=== PATIENT | female | born 1995 | race Two or more races ===

== ENCOUNTER 2020-05-06 00:59 | Emergency (ER) | payer MEDICAID ==
[~2020-05-06] VITALS: Ht 152.4 cm; Wt 87.1 kg
--- NOTE | 2020-05-06 01:16 | NUR ---
ED Nurse Note: Patient walked into the ED with c/o dizziness. Pt was experiencing dizziness a couple of months ago but got worse recently, accompanied by orthostatic hyptonsion this AM at work. Patient denies LOC, trauma and n/v. Patient is AAOX4 and ambulatory. Placed on monitor bed.
[2020-05-06 01:30] VITALS: BP 122/82
--- NOTE | 2020-05-06 01:49 | NUR ---
ED Nurse Note: ERMD at bedside
--- NOTE | 2020-05-06 02:00 | Emergency Room Report ---
History of Present Illness General Chief Complaint: Dizziness Source: Patient Present Illness [facility] This is a 24-year-old female with no past medical history. She presents with chief complaint of dizziness. This been an intermittent problem for the last 2 months or so. Occasionally she gets very dizzy felt as she cannot pass out. Usually with sitting to a standing position. But it happened when she is laying down also. No nausea no vomiting. No diaphoresis. No palpitation. Never had work-up for this. Denies any other complaint. Allergies: Coded Allergies: No Known Allergies (Unverified , 05/06/20) COVID-19 Screening Contact w/high risk pt: No Experienced COVID-19 symptoms?: No COVID-19 Testing performed DRUPAL ARCHITECT: No Patient History Past Medical History: see triage record, old chart reviewed Past Surgical History: none Pertinent Family History: none Social History: Denies: smoking Last Menstrual Period: t Now: No : 0 Para: 0 Immunizations: other Reviewed Nursing Documentation: PMH: Agreed; PSxH: Agreed Nursing Documentation-PMH Past Medical History: No Stated History Review of Systems Eye: Denies: eye pain, blurred vision ENT: Denies: ear pain, nose congestion, throat swelling Respiratory: Denies: cough, shortness of breath Cardiovascular: Denies: chest pain, palpitations Gastrointestinal: Denies: abdominal pain, diarrhea, nausea, vomiting Musculoskeletal: Denies: back pain, joint pain Skin: Denies: rash Neurological: Reports: dizziness; Denies: headache, numbness Endocrine: Denies: increased thirst, increased urine Hematologic/Lymphatic: Denies: easy bruising All Other Systems: negative except mentioned in HPI Physical Exam Vital Signs Date Time Temp Pulse Resp B/P (MAP) Pulse Ox O2 Delivery O2 Flow Rate FiO2 05/06/20 01:10 98.4 57 20 122/82 (95) 99 Room Air Vitals unremarkable Sp02 EP Interpretation: reviewed, normal General Appearance: well appearing, no apparent distress, alert Head: normocephalic, atraumatic Eyes: bilateral eye PERRL, bilateral eye EOMI ENT: hearing grossly normal, normal pharynx Neck: full range of motion, supple, no meningismus Respiratory: chest non-tender, lungs clear, normal breath sounds Cardiovascular #1: regular rate, rhythm, no murmur, bradycardia Gastrointestinal: normal bowel sounds, non tender, no mass, no organomegaly, no bruit, non-distended Musculoskeletal: back normal, normal range of motion, gait/station normal Psychiatric: mood/affect normal Medical Decision Making Diagnostic Impression: Primary Impression: Dizziness ER Course Patient presents with dizziness. Unknown etiology. This could be secondary to arrhythmia or PVCs orthostatic hypotension. Her heart rate been in the 50s here. Blood pressures been normal. Patient said that her heart rate always runs in the mid 50s. Labs unremarkable with no electrolyte abnormality. She is not . Not anemic. Will discharge home with recommendation for Holter monitor. EKG Diagnostic Results Rate: normal, bradycardiac Rhythm: NSR ST Segments: no acute changes Rhythm Strip Diag. Results EP Interpretation: yes Rate: 51 Rhythm: NSR, no PVC's, no ectopy Last Vital Signs Date Time Temp Pulse Resp B/P (MAP) Pulse Ox O2 Delivery O2 Flow Rate FiO2 05/06/20 01:10 98.4 57 20 122/82 (95) 99 Room Air Status: improved Disposition: HOME, SELF-CARE Condition: Stable Referrals: [facility],REFERR[facility] (PCP) Patient Instructions: Dizziness Additional Instructions: Follow-up with your doctor in a week. Recommend referral to see vessel liner for Holter monitor. Return if worse. Kev Parker MD May 06, 2020 01:59
--- NOTE | 2020-05-06 02:00 | NUR ---
ED Nurse Note: Blood and urine specimen sent to lab
[2020-05-06 02:16] LABS: EOSINOPHILS % (AUTO) 1.1 % (0.0-3.0); HEMATOCRIT 40.6 % (37.0-47.0); HEMOGLOBIN 14.4 G/DL (12.0-16.0); LYMPHOCYTES % (AUTO) 42.4 % (20.0-45.0); MEAN CORPUSCULAR VOLUME 89 FL (80-99); NEUTROPHILS % (AUTO) 48.6 % (45.0-75.0); PLATELET COUNT 223 K/UL (150-450); RED BLOOD COUNT 4.59 M/UL (4.20-5.40); RED CELL DISTRIBUTION WIDTH 11.2 % (11.6-14.8)
[2020-05-06 02:24] LABS: APPEARANCE,URINE CLEAR; BILIRUBIN, URINE NEGATIVE (NEGATIVE); COLOR,URINE PALE YELLOW; GLUCOSE, URINE (UA) NEGATIVE (NEGATIVE); KETONES,URINE NEGATIVE (NEGATIVE); NITRITE,URINE NEGATIVE (NEGATIVE); PROTEIN,URINE NEGATIVE (NEGATIVE)
[2020-05-06 02:25] LABS: LEUKOCYTE ESTERASE ,URINE NEGATIVE (NEGATIVE); UROBILINOGEN,URINE NORMAL MG/DL (0.0-1.0)
[2020-05-06 02:28] LABS: ANION GAP 9 mmol/L (5-15); BLOOD UREA NITROGEN 17 mg/dL (7-18); CALCIUM 9.4 MG/DL (8.5-10.1); CARBON DIOXIDE 27 MMOL/L (21-32); CHLORIDE 104 MMOL/L (98-107); CREATININE 0.7 MG/DL (0.55-1.30); SODIUM 140 MMOL/L (136-145)
--- NOTE | 2020-05-06 02:56 | NUR ---
ER DISCHARGE NOTE: Patient is cleared to be discharged per ERMD, pt is aox4, on room air, with stable vital signs. pt was given dc and prescription instructions, pt was able to verbalize understanding, pt id band and iv site removed without complications. pt is able to ambulate with steady gait. pt took all belongings.
[2020-05-06 02:57] VITALS: BP 124/82
== END 2020-05-06 02:58 | disposition home or self-care (01) ==
LOC: EMR 01:20
DX: R42 Dizziness and giddiness (principal)
CPT/HCPCS: 36415; 80048; 81001; 81025; 85025; 93005; Z7502; 99283